=== PATIENT | female | born 1960 | race Caucasian/White ===

== ENCOUNTER 2019-05-24 12:44 | Outpatient (CLI) | payer OTHER ==
--- NOTE | 2019-05-24 14:14 | CT ---
CT ABDOMEN AND PELVIS WITH ORAL AND IV CONTRAST: HISTORY: Left lower quadrant pain. FINDINGS: The lung bases are clear. The liver, spleen, pancreas, adrenal glands, and kidneys are normal. No c alcified gallstones are seen. No free air, free fluid, or lymphadenopathy is noted in the ad or pelv is. The small bowel loops are not abnormally dilated. A normal-appearing appendix is seen. There i s colonic diverticulosis. There is thickening of the wall of the sigmoid colon. The patient is post hysterectomy. IMPRESSION: 1. Colonic diverticulosis. 2. Thickening of the wall of the sigmoid colon. Diverticulitis versus mass. Recommend colonoscopy after a course of antibiotics. POS: OFF
== END 2019-05-24 12:45 | disposition home or self-care (01) ==
LOC: BICCT 12:44
PROVIDERS: ATTEND Internal Medicine Gastroenterology
DX: R10.32 Left lower quadrant pain (principal); K57.30 Diverticulosis of large intestine without perforation or abscess without bleeding; K63.89 Other specified diseases of intestine
CPT/HCPCS: 74177

== ENCOUNTER 2020-02-22 06:34 | Outpatient (CLI) | payer OTHER ==
--- NOTE | 2020-02-22 09:52 | RAD ---
XR Chest Pa Lat STANDARD HISTORY: Preoperative evaluation COMPARISON: 04/19/2017 FINDINGS: The heart size is normal. The lungs are well expanded without focal areas of consolidation, pneumothorax or pleural effusions. IMPRESSION: No radiographic evidence of acute cardiopulmonary process.
[2020-02-22 10:52] LABS: #Basophils 0.1 10x3/uL (0.0-0.2); #Eosinphils 0.1 10x3/uL (0.0-0.5); #Monocytes 0.4 10x3/uL (0.0-1.1); #Neutrophils 2.9 10x3/uL (1.5-8.4); %Basophils 1.3 % (0.0-2.0); %Eosinophils 0.9 % (0.0-6.0); %Lymphocytes 34.8 % (18.0-47.0); %Monocytes 8.3 % (0.0-10.0); %Neutrophils 54.5 % (40.0-75.0); Hemoglobin 15.3 g/dL (12.0-16.0); Mean Corpuscular HGB CONC 32.9 G/DL (32.0-36.0); Mean Corpuscular Hemoglobin 29.3 PG (27.0-33.0); Mean Corpuscular Volume 89.1 fl (80.0-100.0); Mean Platelet Volume 9.8 fl (7.4-10.4); Platelet Count 361 10x3/uL (130-400); RBC Distribution Width 12.6 % (11.5-14.5); Red Blood Cell (RBC) Count 5.22 10x6/uL (3.90-5.20); White Blood Cell (WBC) Count 5.3 10x3/uL (4.5-11.0)
[2020-02-22 11:20] LABS: Anion Gap 16 mmol/L (10-20); BUN (Urea Nitrogen) 8 mg/dL (9.8-20.1); Calc. Creatinine Clearance 0 mL/min (70-130); Calcium 9.4 mg/dL (7.8-10.44); Carbon Dioxide 23 mmol/L (22-29); Chloride 108 mmol/L (98-107); Estimated GFR-MDRD 71; Glucose 89 mg/dL (70-105); Sodium 142 mmol/L (136-145)
[2020-02-22 14:34] LABS: Hemoglobin A1c 5.4 % (4.0-6.0)
[2020-02-22 22:57] LABS: SARS-CoV-2 MS2 Positive; SARS-CoV-2 N Gene Negative; SARS-CoV-2 S Gene Negative; SARS-CoV-2 by NAA Not Detected (NotDetected); SARS-CoV-2 orf1ab Negative
--- NOTE | 2020-02-27 02:21 | EKG ---
Test Reason : PREOP Blood Pressure : / mmHG Vent. Rate : 072 BPM Atrial Rate : 072 BPM P-R Int : 148 ms QRS Dur : 102 ms QT Int : 418 ms P-R-T Axes : 065 -47 064 degrees QTc Int : 457 ms Normal sinus rhythm Incomplete right bundle branch block Left anterior fascicular block Abnormal ECG No previous ECGs available Confirmed by JANELLE ARNOLD, MATEO ([id number]) on 02/27/2020 2:21:06 AM Referred By: Sanjay GIBBS Confirmed By:MATEO LUIS MD
== END 2020-02-22 06:35 | disposition home or self-care (01) ==
LOC: LABBT 06:34
PROVIDERS: ATTEND Specialist
DX: Z01.818 Encounter for other preprocedural examination (principal); K57.32 Diverticulitis of large intestine without perforation or abscess without bleeding; Z20.828 Contact with and (suspected) exposure to other viral communicable diseases
CPT/HCPCS: 71046; 80048; 83036; 85025; 87635; 93005; 93010; U0003

== ENCOUNTER 2020-02-22 09:45 | Inpatient (IN) | payer OTHER ==
[2020-02-26 09:36] VITALS: BMI 31.0
[2020-02-27] MEDS ORDERED: Glycopyrrolate 0.2 MG/ML 5 ML SYRINGE ONE (10:25)
[2020-02-27] MEDS ORDERED: PHENYLEPHRINE-NS 100 MCG/ML 10 ML SYRINGE ONE (10:25)
[2020-02-27] MEDS ORDERED: Rocuronium Bromide 10 MG/ML (10ML VIAL) ONE (10:25)
[2020-02-27] MEDS ORDERED: Lidocaine 1% PF 5 ML VIAL ONE (10:25)
[2020-02-27] MEDS ORDERED: Ondansetron PF 4 MG/2 ML Vial ONE (10:25)
[2020-02-27] MEDS ORDERED: Dexamethasone 20 MG/5 ML VIAL ONE (10:25)
[2020-02-27] MEDS ORDERED: PROPOFOL 200 MG/20 ML VIAL ONE (10:25)
[2020-02-27] MEDS ORDERED: ePHEDrine 50 MG/ML VIAL ONE (10:25)
[2020-02-27] MEDS ORDERED: Bupivacaine HCl 0.5%/Epinephrine 1:200,000/PF 30 ml Vial ONE (10:27)
[2020-02-27] MEDS ORDERED: Midazolam HCl 2 mg/2 ml Vial ONE ×2 (12:31→13:30)
[2020-02-27] MEDS ORDERED: Fentanyl 100 MCG/2 ML VIAL ONE ×2 (12:32→14:20)
[2020-02-27] MEDS ORDERED: Ketorolac Tromethamine 30 MG/ML VIAL ONE (12:41)
[2020-02-27] MEDS ORDERED: cefOXitin Sodium/Dextrose 2 GM/50 ML BAG ONE ×2 (12:41→18:13)
[2020-02-27] MEDS ORDERED: Acetaminophen 500 MG TAB ONE (12:41)
[2020-02-27] MEDS ORDERED: Bupivacaine PF 0.5% 30 ML VIAL ONE (14:13)
[2020-02-27] MEDS ORDERED: Lidocaine 1% w/Epinephrine 1:100K 20 ML VIAL ONE (14:13)
[2020-02-27] MEDS ORDERED: Lidocaine 2% Jelly 5 ML TUBE ONE (14:20)
[2020-02-27] MEDS ORDERED: ceFOXitin 1 GM VIAL ONE (18:12)
[2020-02-27] MEDS ORDERED: Promethazine HCl 25 MG/ML VIAL SLOW IVP PRN (18:42)
[2020-02-27] MEDS ORDERED: Promethazine HCl 25 MG/ML VIAL IM PRN ×2 (18:42→19:07)
[2020-02-27] MEDS ORDERED: Ondansetron HCl/PF 4 MG/2 ML Vial IVP PRN (18:42)
[2020-02-27] MEDS ORDERED: hydrALAZINE 20 MG/ML VIAL SLOW IVP PRN (19:07)
[2020-02-27] MEDS ORDERED: Morphine 4 MG/ML VIAL SLOW IVP PRN (19:07)
[2020-02-27] MEDS ORDERED: ALPRAZolam 0.25 MG TAB PO PRN (19:07)
[2020-02-27] MEDS ORDERED: Morphine 2 MG/ML VIAL SLOW IVP PRN (19:07)
[2020-02-27] MEDS: D5 1/2 NS w/20 mEq KCL 1,000 ML IV SCH (21:33)
[2020-02-27] MEDS: Famotidine/PF 20 mg/2ml Vial SLOW IVP SCH (21:33)
[2020-02-27] MEDS: Enoxaparin Sodium 40 MG/0.4 ML SYRINGE SC SCH (21:33)
[2020-02-27] MEDS: Famotidine 20 MG TAB PO SCH (21:34)
[2020-02-27] MEDS: Ketorolac Tromethamine 30 MG/ML VIAL IVP SCH (23:31)
[2020-02-28] MEDS: Ketorolac Tromethamine 30 MG/ML VIAL IVP SCH ×4 (05:30→23:42)
[2020-02-28 06:17] LABS: Anion Gap 14 mmol/L (10-20); BUN (Urea Nitrogen) 7 mg/dL (9.8-20.1); Calc. Creatinine Clearance 123 mL/min (70-130); Calcium 8.9 mg/dL (7.8-10.44); Carbon Dioxide 21 mmol/L (22-29); Chloride 106 mmol/L (98-107); Estimated GFR-MDRD 81; Glucose 137 mg/dL (70-105); Potassium 4.4 mmol/L (3.5-5.1); Sodium 137 mmol/L (136-145)
[2020-02-28 06:19] LABS: Band 7 % (5-11); Eosinophils 1 % (0-10); Lymphocytes 7 % (21-51); MDiff Complete? YES; Mean Corpuscular HGB CONC 33.6 g/dL (32.0-36.0); Mean Corpuscular Hemoglobin 30.5 pg (27.0-31.0); Mean Corpuscular Volume 90.9 fL (78.0-98.0); Mean Platelet Volume 8.1 fL (7.4-10.4); Metamyelocyte 1 % (0-0); Monocytes 8 % (0-10); Neutrophil 76 % (42-75); Platelet Count 313 thou/uL (130-400); Platelet Morphology Comment Appears Adequate; RBC Distribution Width 11.7 % (11.5-14.5); RBC Morphology Normal; Red Blood Cell (RBC) Count 4.58 mill/uL (4.20-5.40); White Blood Cell (WBC) Count 16.8 thou/uL (4.8-10.8)
[2020-02-28] MEDS ORDERED: cefOXitin Sodium/Dextrose,Iso 2 GM in Premix Bag 1 BAG IVPB SCH (08:00)
[2020-02-28] MEDS: cefOXitin Sodium/Dextrose,Iso 2 GM in Premix Bag 1 BAG IVPB SCH ×3 (09:34→20:22)
[2020-02-28] MEDS: D5 1/2 NS w/20 mEq KCL 1,000 ML IV SCH ×2 (09:35→17:28)
[2020-02-28] MEDS: Famotidine 20 MG TAB PO SCH ×2 (09:36→20:22)
[2020-02-28] MEDS: Famotidine/PF 20 mg/2ml Vial SLOW IVP SCH ×2 (09:36→20:22)
[2020-02-28] MEDS ORDERED: HYDROcodone/Acetaminophen 7.5/325 mg Tablet PO PRN (14:54)
[2020-02-28] MEDS ORDERED: Lactated Ringer's 500 ML IV SCH (19:30)
[2020-02-28] MEDS: Enoxaparin Sodium 40 MG/0.4 ML SYRINGE SC SCH (20:22)
[2020-02-28] MEDS: HYDROcodone/Acetaminophen 7.5/325 mg Tablet PO PRN (20:29)
[2020-02-28] MEDS ORDERED: FLU VACC QS2020-21(6MOS UP)/PF 60 MCG/0.5 ML SYRINGE IM ONE (21:00)
--- NOTE | 2020-02-29 00:50 | PRG ---
DATE OF SERVICE: 02/28/2020 SUBJECTIVE: Ms. Coon is postoperative day #1 from a laparoscopic sigmoid colectomy for diverticulitis. She had an initial anastomotic air leak after her resection. This was repaired with laparoscopic suturing. A drain was left after the surgery. This morning, she has no complaints. She notes [id number] appropriate abdominal discomfort. She has not yet ambulated. Her Rosenberg catheter is in place. She has tolerated some clear liquids. PHYSICAL EXAMINATION: VITAL SIGNS: She is afebrile. Her pulse has been somewhat elevated today between 84 and 100. Blood pressure was normal at 111/73. GENERAL: She is comfortable and resting in bed. LUNGS: Clear to auscultation. ABDOMEN: Soft and nontender. She has appropriate nik-incisional discomfort. Incisions are healing nicely with Dermabond intact. Bowel sounds are present and normoactive in all four quadrants. Drain is in place in the right abdomen and draining appropriate light serosanguineous fluid. The drain output overnight was 50 mL. LABORATORY DATA: White blood cell count was elevated at 16.8, hemoglobin 14.0, and platelet count was 313. Chemistries revealed a mildly depressed carbon dioxide level of 21, otherwise labs are unremarkable. ASSESSMENT: The patient is stable following sigmoid colectomy for diverticulitis. I will continue her clear liquids today. She really has not had very much way of liquids. She will begin ambulating regularly today and her Rosenberg catheter will be removed. I will recheck her blood count in the morning and consider advancing her diet if she makes appropriate progress. Job ID: [id number]
[2020-02-29] MEDS: cefOXitin Sodium/Dextrose,Iso 2 GM in Premix Bag 1 BAG IVPB SCH ×3 (02:00→12:55)
--- NOTE | 2020-02-29 05:17 | OP ---
DATE OF PROCEDURE: 02/27/2020 PREOPERATIVE DIAGNOSIS: Multiple recurrent sigmoid colon diverticulitis. POSTOPERATIVE DIAGNOSIS: Multiple recurrent sigmoid colon diverticulitis. OPERATION PERFORMED: Laparoscopic hand-assisted sigmoid colectomy. ANESTHESIA: General endotracheal. INDICATIONS FOR PROCEDURE: The patient is a 59-year-old white female. She presents with a history of 6 episodes of diverticulitis during this calendar year that have required treatment with antibiotics. In light of her multiple recurrent episodes, she presents for sigmoid colectomy. CT scan documents area of inflammation associated with this within the sigmoid colon. DESCRIPTION OF OPERATION: Informed consent was obtained, patient taken to the operating room, where general endotracheal anesthesia obtained, patient in supine position. She had a tap block placed by Anesthesia preoperatively. A Rosenberg catheter was placed. She was placed in dorsal lithotomy position. Local anesthetic was infiltrated with 0.25% Marcaine with epinephrine. A 5 mm supraumbilical incision was created through which a Veress needle was passed into the peritoneal cavity. Pneumoperitoneum established using carbon dioxide up to pressure of 15 mmHg. A 5 mm trocar port was passed through the same incision. Laparoscopic camera was passed this port. Under direct vision, a 12 mm port was placed in the right lower quadrant. There were omental adhesions from the omentum down the pelvis from her prior hysterectomy. These were taken down using LigaSure. I was then able to easily reflect the omentum into the upper abdomen. The area of the inflammation related to her diverticulitis, which was visualized. An 8 mm oblique incision was created in the left lower quadrant. Muscle-splitting technique was used to gain access into the abdominal cavity and an José Luis wound retractor followed by GelPort was placed. I began mobilization of the inflamed segment of the colon with the lateral abdominopelvic wall using careful LigaSure dissection. Once this was mobilized, I dissected superiorly along the white line of Toldt in order to mobilize the left colon medially. Mobilization was carried up to and including the splenic flexure. Attention was then returned . I identified the left ureter, mobilized this posteriorly and protected it throughout the operation. At approximately the sacral promontory, I began dissecting the mesentery. I performed all dissection with a LigaSure. A mesenteric window was created and dissection was carried inferiorly in the plane of a total mesorectal excision. I carried the dissection below the level of the diverticular disease. I then recognized several other diverticula within the distal sigmoid colon and therefore dissected onto the rectosigmoid junction. The colon was skeletonized at this level and divided with a single fire of the blue load of the [place] stapler. I then dissected the mesentery proximally somewhat. I identified a segment of the descending colon that would reach down easily to the rectal stump. This was marked with a LigaSure and the colon was delivered extracorporeally. I mobilized the remaining mesentery with the LigaSure. Then with the area toweled off with sterile towels and using segregated instruments, I created an enterotomy and checked the colon for size. It was relatively narrow at this level. I selected the 29 mm EEA stapler. The anvil was obtained and passed through the enterotomy several centimeters proximally were it was brought out antimesenteric. The colotomy was then excluded in continuity with the indurated diseased segment of the sigmoid colon. The specimen was passed off the field. After the colon was passed off the field, the segregated instruments were passed off and gloves were changed. A 2-0 Prolene pursestring suture was placed around the base of the anvil and the colon was dropped into the abdominal cavity. From below, EEA sizers were passed up through the anus up to the rectal stump uneventfully. The 29 mm EEA stapler was then passed up to the same level and the spike was advanced just on the anterior aspect of the staple line. The two segments of the bowel were mated and they were approximated. The anastomosis was created by firing the EEA stapler. Unfortunately, although the staple was opened appropriately, it would not disengage from the colon without difficulty. It was eventually removed, but with more effort and should have been necessary. The anastomosis was checked to make sure it was airtight with underwater testing. Unfortunately, there was a large air leak. This was determined to be along the anterior aspect of the anastomosis. It was visualized and there did appear to be some laxity along the anterior staple line. I therefore buttressed the entire anterior staple line with a series of interrupted sutures of 3-0 Vicryl placed in a Lembert fashion, all the way from one side to the other. After these were placed, the anastomosis was checked one more time and found to be entirely airtight. Because of the leak that had occurred, although there had been no enteric material that was visualized, I decided to place a drain within this area. An additional 5 mm incision was created in the right abdomen and a drain was passed through this incision and positioned down within the pelvis. It was secured externally with a 3-0 nylon suture. The fascia at the 12 mm port was closed with 0 Vicryl suture using a GraNee needle. All ports and instruments were removed. All laparoscopic instrumentation was passed off the field. The abdominal cavity was cleansed with saline. Gowns and gloves were changed and instrumentation was used only from the closing set. The fascia at the extraction site in the left lower quadrant was closed in 2 layers using running suture of #1 PDS. She had a very thick layer of subcutaneous fat that made closure of this challenging. Additional local anesthetic was infiltrated between the layers of fascia. The wound was copiously irrigated using 2 L of saline. The remainder of the wound was closed in layers with 3-0 and 4-0 Monocryl. Dermabond was placed externally. Remaining incisions were closed with 4-0 Monocryl subcuticular and Dermabond also placed. Sterile dressing was placed over the drain exit site. There were no complications with the operation. Blood loss was negligible. The patient tolerated the procedure well and was taken to recovery room in stable condition. Job ID: [id number]
[2020-02-29 05:21] LABS: #Basophils 0.1 thou/uL (0.0-0.2); #Lymphocytes 2.5 thou/uL (1.20-3.40); #Monocytes 0.8 thou/uL (0.11-0.59); #Neutrophils 6.3 thou/uL (1.40-6.50); %Basophils 0.6 % (0.0-1.0); %Eosinophils 0.4 % (0.0-10.0); %Lymphocytes 26.2 % (21.0-51.0); %Monocytes 8.1 % (0.0-10.0); %Neutrophils 64.6 % (42.0-75.0); Hemoglobin 11.9 g/dL (12.0-16.0); Mean Corpuscular HGB CONC 32.9 g/dL (32.0-36.0); Mean Corpuscular Hemoglobin 30.4 pg (27.0-31.0); Mean Corpuscular Volume 92.3 fL (78.0-98.0); Mean Platelet Volume 7.7 fL (7.4-10.4); Platelet Count 249 thou/uL (130-400); RBC Distribution Width 11.7 % (11.5-14.5); Red Blood Cell (RBC) Count 3.93 mill/uL (4.20-5.40); White Blood Cell (WBC) Count 9.7 thou/uL (4.8-10.8)
[2020-02-29] MEDS: Ketorolac Tromethamine 30 MG/ML VIAL IVP SCH ×4 (05:23→23:37)
[2020-02-29] MEDS: D5 1/2 NS w/20 mEq KCL 1,000 ML IV SCH ×3 (05:24→17:25)
[2020-02-29 05:33] LABS: Anion Gap 10 mmol/L (10-20); BUN (Urea Nitrogen) 6 mg/dL (9.8-20.1); Calc. Creatinine Clearance 96 mL/min (70-130); Carbon Dioxide 24 mmol/L (22-29); Chloride 105 mmol/L (98-107); Estimated GFR-MDRD 61; Potassium 4.1 mmol/L (3.5-5.1); Sodium 135 mmol/L (136-145)
[2020-02-29 05:34] LABS: Calcium 8.2 mg/dL (7.8-10.44); Glucose 106 mg/dL (70-105)
[2020-02-29] MEDS: Famotidine 20 MG TAB PO SCH ×2 (08:34→19:33)
[2020-02-29] MEDS: Famotidine/PF 20 mg/2ml Vial SLOW IVP SCH ×2 (08:34→19:33)
[2020-02-29] MEDS: HYDROcodone/Acetaminophen 7.5/325 mg Tablet PO PRN (12:56)
[2020-02-29] MEDS: Ondansetron PF 4 MG/2 ML Vial IVP PRN (18:58)
[2020-02-29] MEDS: Enoxaparin Sodium 40 MG/0.4 ML SYRINGE SC SCH (19:33)
[2020-03-01] MEDS: Ondansetron PF 4 MG/2 ML Vial IVP PRN (05:22)
[2020-03-01] MEDS: Ketorolac Tromethamine 30 MG/ML VIAL IVP SCH ×2 (05:22→11:40)
--- NOTE | 2020-03-01 08:04 | PDOC.GSPN ---
Surgery Progress Note: Subj - Subjective Narrative: Patient is a 59 y.o female POD 3 s/p laparoscopic sigmoid colectomy for anastomotic leak repair. This morning, she reports feeling ok but "weak". Overnight, she was dizzy and nauseous when she got up to go to the restroom. But symptoms have since resolved after administration of Zofran @ 0500. She describes similar feelings of nausea after eating her dinner last night that also resolved after Zofran administered @ 1900; she is on a full liquid diet. She reports that her pain is under control (3-07/20), but is worsened after meals. She has not had a BM since surgery. She is passing flatus and belching since yesterday. She reports very little sleep last night and increasing anxiety which she attributes to her sister's passing last Wednesday. Patient is ambulating well: 5x yday. She is not using SCDs in bed, but will pump feet often. DONALDO drain is draining serosanguineous fluid. Denies fever/chills, headache, chest pain, cough, SOB. Surgery Progress Note: Obj - Vital signs Vital signs: Vital Signs - Most Recent Temp Pulse Resp BP Pulse Ox 97.6 F 73 20 131/83 96 03/01/20 05:25 03/01/20 05:25 03/01/20 05:25 03/01/20 05:25 03/01/20 05:25 - Physical Exam General: no distress, moderate pain Cardiovascular: regular rate and rhythm, no murmur Respiratory: clear to auscultation, normal expansion, normal respiratory effort Abdomen: soft, nondistended, positive bowel sounds (in all 4 quadrants), tender (LLQ is exquisitely tender to light touch) Wound: healing well Surgery Progress Note: Results - Labs Result Diagrams: 02/29/20 04:38 02/29/20 04:38 Lab results: No new labs as of this morning. Yesterday morning (02/28): Elevated post-op WBC was trending down, 16.8 on 02/27 to 9.7 02/28. Anemia, Hgb 14 on 02/27 to 11.9 on 02/28. Hyponatremia at 135 Low post-op CO2 has since resolved, 24 on 02/28. Surgery Progress Note: A/P - Plan Plan: 59 y.o F POD 3 lap sigmoid colectomy Continue full liquid diet, consider advancing tomorrow if tolerated Continue to monitor for BM, + bowel sounds and + flatus are indicative of bowel function and no concerns at this time Anemia: no symptoms of tissue hypoxia so likely due to dilution. We will monitor. VTE prophylaxis: pt encouraged to ambulate often and pump feet in bed
[2020-03-01] MEDS: Famotidine 20 MG TAB PO SCH (08:38)
[2020-03-01] MEDS: D5 1/2 NS w/20 mEq KCL 1,000 ML IV SCH (08:38)
[2020-03-01] MEDS: HYDROcodone/Acetaminophen 7.5/325 mg Tablet PO PRN ×3 (08:40→16:51)
[2020-03-01] MEDS: Famotidine/PF 20 mg/2ml Vial SLOW IVP SCH (09:02)
[2020-03-01 09:31] LABS: #Basophils 0.1 thou/uL (0.0-0.2); #Eosinphils 0.1 thou/uL (0.0-0.7); #Lymphocytes 1.2 thou/uL (1.20-3.40); #Monocytes 0.5 thou/uL (0.11-0.59); %Basophils 0.9 % (0.0-1.0); %Eosinophils 1.9 % (0.0-10.0); %Lymphocytes 16.9 % (21.0-51.0); %Monocytes 7.7 % (0.0-10.0); %Neutrophils 72.6 % (42.0-75.0); Hemoglobin 13.9 g/dL (12.0-16.0); Mean Corpuscular HGB CONC 34.2 g/dL (32.0-36.0); Mean Corpuscular Hemoglobin 31.3 pg (27.0-31.0); Mean Corpuscular Volume 91.5 fL (78.0-98.0); Mean Platelet Volume 7.2 fL (7.4-10.4); Platelet Count 301 thou/uL (130-400); RBC Distribution Width 11.7 % (11.5-14.5); Red Blood Cell (RBC) Count 4.44 mill/uL (4.20-5.40); White Blood Cell (WBC) Count 6.9 thou/uL (4.8-10.8)
--- NOTE | 2020-03-01 10:31 | RAD ---
SUPINE ABDOMEN: Date: 03/01/2020 HISTORY: Ileus. FINDINGS: Scattered stool and gas seen in the colon. No significant small bowel gas. No evidence of small bowel dilatation or ileus seen on this 1 view study. IMPRESSION: No evidence of small bowel dilatation or distention. POS: OFF
[2020-03-01 16:11] VITALS: BP 114/80; TEMP 97.6
== END 2020-03-01 18:22 | disposition home or self-care (01) | DRG 330 ==
LOC: SURG A 02-27 09:48
PROVIDERS: ADMIT Specialist; ATTEND Specialist
PROC: 0DBN4ZZ Excision of Sigmoid Colon, Percutaneous Endoscopic Approach (ICD-10-PCS; principal; 2020-02-27)
DX: K57.32 Diverticulitis of large intestine without perforation or abscess without bleeding (principal); E87.1 Hypo-osmolality and hyponatremia; D64.9 Anemia, unspecified; F41.9 Anxiety disorder, unspecified; Z85.828 Personal history of other malignant neoplasm of skin; Z90.710 Acquired absence of both cervix and uterus; Z98.890 Other specified postprocedural states; Z88.8 Allergy status to other drugs, medicaments and biological substances
CPT/HCPCS: 36415; 36416; 74018; 80048; 85025; 88307; J0694; J1100; J1650; J1885; J2250; J2270; J2405; J2704; J3010; J3480; J3490; S0020; S0028

== ENCOUNTER 2025-01-09 06:22 | Day surgery (SDC) | payer OTHER, MEDICARE ==
[2025-01-08 09:08] VITALS: BMI 23.6
[2025-01-09] MEDS ORDERED: PROPOFOL 20 ML ONE ×2 (07:18→09:34)
== END 2025-01-09 10:35 | disposition home or self-care (01) ==
LOC: SDC 06:22
PROVIDERS: ATTEND Internal Medicine Gastroenterology
PROC: 0DJD8ZZ Inspection of Lower Intestinal Tract, Via Natural or Artificial Opening Endoscopic (ICD-10-PCS; principal; 2025-01-09)
DX: K57.30 Diverticulosis of large intestine without perforation or abscess without bleeding (principal); F41.9 Anxiety disorder, unspecified; Z86.0101 Personal history of adenomatous and serrated colon polyps; Z85.828 Personal history of other malignant neoplasm of skin; Z90.710 Acquired absence of both cervix and uterus; Z90.49 Acquired absence of other specified parts of digestive tract; Z88.6 Allergy status to analgesic agent; Z79.899 Other long term (current) drug therapy
CPT/HCPCS: J2704